=== PATIENT | male | born 1995 | race Two or more races ===

== ENCOUNTER 2018-10-14 02:07 | Emergency (ER) | payer SELFPAY ==
[2018-10-14 04:03] LABS: ABS Basophils 0.1 10^3/ul (0-0.2); ABS Eosinophils 0.1 10^3/ul (0-0.6); ABS Lymphocytes 2.7 10^3/ul (1.0-4.8); ABS Monocytes 0.7 10^3/ul (0-0.8); ABS Neutrophils 4.5 10^3/ul (1.5-7.7); ABS Nucleated RBC 0 10^3/ul; Eosinophil % 1.7 %; Hematocrit 50 % (42-52); Hemoglobin 17.1 g/dl (14.0-18.0); Lymphocyte % 33.6 %; Mean Corpuscular HGB Conc 34 g/dl (31-36); Mean Corpuscular Hemoglobin 30 pg (27-31); Mean Corpuscular Volume 88 fL (80-94); Mean Platelet Volume 9.3 fL (7.4-10.4); Nucleated Red Blood Cells % 0; Platelet Count 206 10^3/ul (150-450); Red Blood Count 5.68 10^6/ul (4.00-5.40); Red Cell Distribution Width 13 % (10.5-15); White Blood Count 8.1 10^3/ul (3.5-10.8)
[2018-10-14 04:21] LABS: Albumin 4.6 g/dL (3.2-5.2); Albumin/Globulin Ratio 1.6 (1-3); BUN/Creatinine Ratio 21.3 (8-20); Calcium 9.7 mg/dL (8.6-10.3); EGFR African American 128.2 (>60); EGFR Non-African American 105.9 (>60); Globulin 2.8 g/dL (2-4); Potassium 3.5 mmol/L (3.5-5.0); Total Bilirubin 0.6 mg/dL (0.2-1.0); Total Protein 7.4 g/dL (6.4-8.9)
[2018-10-14] MEDS ORDERED: LORazepam TAB(*) 1 MG PO ONE (04:39)
--- NOTE | 2018-10-14 06:07 | ED ---
Shortness of Breath - HPI Summary HPI Summary: The patient is a 23 y/o M presenting to [facility] with a chief complaint of sudden onset SOB tonight. He states he was trying to go to sleep after feeling fatigued and stressed out from school, when he felt like he couldn't breathe well. He went outside to try to get some air, but there was no relief so he came to the ED. He felt alright this morning, but he had a similar experience a few nights ago. He additionally c/o mild dizziness. He denies wheezing, CP, and pain or swelling in the legs. He is not currently in pain as his symptoms have resolved. No hx. - History of Current Complaint Chief Complaint: EDUpperRespComplaint Time Seen by Provider: 10/14/18 03:16 Hx Obtained From: Patient Onset/Duration: Sudden Onset, Lasting Minutes, Resolved Current Severity: Mild Aggrevating Factors: Nothing Alleviating Factors: Nothing Associated Signs & Symptoms: Dizzy - Allergy/Home Medications Allergies/Adverse Reactions: Allergies Allergy/AdvReac Type Severity Reaction Status Date / Time No Known Allergies Allergy Verified 10/14/18 02:10 PMH/Surg Hx/FS Hx/Imm Hx Endocrine/Hematology History: Denies: Hx Diabetes Respiratory History: Denies: Hx Asthma Sensory History: Reports: Hx Contacts or Glasses - Surgical History Surgery Procedure, Year, and Place: none Infectious Disease History: No Infectious Disease History: Reports: Traveled Outside the in Last 30 Days - [place] - Family History Known Family History: Positive: Unknown - patient is unsure - Social History Occupation: Student Alcohol Use: None Substance Use Type: Reports: None Smoking Status (MU): Never Smoked Tobacco Review of Systems Positive: Fatigue Negative: Chest Pain Positive: Shortness Of Breath, Other - NEGATIVE: wheezing Positive: Other - NEGATIVE: pain in legs. Negative: Edema Neurological: Other - mild dizziness Positive: Other - stressed out All Other Systems Reviewed And Are Negative: Yes Physical Exam - Summary Physical Exam Summary: Appearance: Well-appearing, Well-nourished, lying in bed comfortably Skin: Warm, dry, no obvious rash Eyes: sclera anicteric, no conjunctival pallor ENT: mucous membranes moist, pharynx appears normal Neck: Supple, nontender Respiratory: Clear to auscultation, no signs of respiratory distress Cardiovascular: Normal S1, S2. No murmurs. Normal distal pulses in tibial and radial bilaterally. Abdomen: Soft, nontender, normal active bowel sounds present Musculoskeletal: Normal, Strength/ROM Intact Neurological: A&Ox3, awake and alert, mentation is normal, speech is fluent and appropriate Psychiatric: affect is normal, does not appear anxious or depressed Triage Information Reviewed: Yes Vital Signs On Initial Exam: Initial Vitals Temp Pulse Resp BP Pulse Ox 98.5 F 65 16 129/92 100 10/14/18 02:10 10/14/18 02:10 10/14/18 02:10 10/14/18 02:10 10/14/18 02:10 Vital Signs Reviewed: Yes Diagnostics - Vital Signs Vital Signs Temp Pulse Resp BP Pulse Ox 10/14/18 05:17 53 111/72 97 10/14/18 05:00 54 96 10/14/18 04:56 17 10/14/18 04:47 56 105/78 98 10/14/18 04:17 56 115/74 97 10/14/18 04:00 56 100 10/14/18 03:47 137/91 10/14/18 03:18 67 99 10/14/18 03:17 64 134/94 99 10/14/18 02:10 98.5 F 65 16 129/92 100 - Laboratory Lab Results: Lab Results 10/14/18 10/14/18 10/14/18 Range/Units 03:57 03:57 03:57 WBC 8.1 (3.5-10.8) 10^3/ul RBC 5.68 H (4.00-5.40) 10^6/ul Hgb 17.1 (14.0-18.0) g/dl Hct 50 (42-52) % MCV 88 (80-94) fL MCH 30 (27-31) pg MCHC 34 (31-36) g/dl RDW 13 (10.5-15) % Plt Count 206 (150-450) 10^3/ul MPV 9.3 (7.4-10.4) fL Neut % (Auto) 55.7 % Lymph % (Auto) 33.6 % [place] % (Auto) 8.1 % Eos % (Auto) 1.7 % Baso % (Auto) 0.9 % Absolute Neuts (auto) 4.5 (1.5-7.7) 10^3/ul Absolute Lymphs (auto) 2.7 (1.0-4.8) 10^3/ul Absolute Monos (auto) 0.7 (0-0.8) 10^3/ul Absolute Eos (auto) 0.1 (0-0.6) 10^3/ul Absolute Basos (auto) 0.1 (0-0.2) 10^3/ul Absolute Nucleated RBC 0 10^3/ul Nucleated RBC % 0 D-Dimer, Quantitative < 200 (Less Than 230) ng/mL Sodium 138 (135-145) mmol/L Potassium 3.5 (3.5-5.0) mmol/L Chloride 104 (101-111) mmol/L Carbon Dioxide 27 (22-32) mmol/L Anion Gap 7 (2-11) mmol/L BUN 19 (6-24) mg/dL Creatinine 0.89 (0.67-1.17) mg/dL Est GFR ( Amer) 128.2 (>60) Est GFR (Non-Af Amer) 105.9 (>60) BUN/Creatinine Ratio 21.3 H (8-20) Glucose 88 (70-100) mg/dL Lactic Acid (0.5-2.0) mmol/L Calcium 9.7 (8.6-10.3) mg/dL Total Bilirubin 0.60 (0.2-1.0) mg/dL AST 15 (13-39) U/L ALT 16 (7-52) U/L Alkaline Phosphatase 41 (34-104) U/L Troponin I 0.00 (<0.04) ng/mL Total Protein 7.4 (6.4-8.9) g/dL Albumin 4.6 (3.2-5.2) g/dL Globulin 2.8 (2-4) g/dL Albumin/Globulin Ratio 1.6 (1-3) 10/14/18 Range/Units 03:57 WBC (3.5-10.8) 10^3/ul RBC (4.00-5.40) 10^6/ul Hgb (14.0-18.0) g/dl Hct (42-52) % MCV (80-94) fL MCH (27-31) pg MCHC (31-36) g/dl RDW (10.5-15) % Plt Count (150-450) 10^3/ul MPV (7.4-10.4) fL Neut % (Auto) % Lymph % (Auto) % [place] % (Auto) % Eos % (Auto) % Baso % (Auto) % Absolute Neuts (auto) (1.5-7.7) 10^3/ul Absolute Lymphs (auto) (1.0-4.8) 10^3/ul Absolute Monos (auto) (0-0.8) 10^3/ul Absolute Eos (auto) (0-0.6) 10^3/ul Absolute Basos (auto) (0-0.2) 10^3/ul Absolute Nucleated RBC 10^3/ul Nucleated RBC % D-Dimer, Quantitative (Less Than 230) ng/mL Sodium (135-145) mmol/L Potassium (3.5-5.0) mmol/L Chloride (101-111) mmol/L Carbon Dioxide (22-32) mmol/L Anion Gap (2-11) mmol/L BUN (6-24) mg/dL Creatinine (0.67-1.17) mg/dL Est GFR ( Amer) (>60) Est GFR (Non-Af Amer) (>60) BUN/Creatinine Ratio (8-20) Glucose (70-100) mg/dL Lactic Acid 1.2 (0.5-2.0) mmol/L Calcium (8.6-10.3) mg/dL Total Bilirubin (0.2-1.0) mg/dL AST (13-39) U/L ALT (7-52) U/L Alkaline Phosphatase (34-104) U/L Troponin I (<0.04) ng/mL Total Protein (6.4-8.9) g/dL Albumin (3.2-5.2) g/dL Globulin (2-4) g/dL Albumin/Globulin Ratio (1-3) Result Diagrams: 10/14/18 03:57 10/14/18 03:57 Lab Statement: Any lab studies that have been ordered have been reviewed, and results considered in the medical decision making process. - Radiology CXR Radiology Interpretation Completed By: Radiologist Summary of Radiographic Findings: No acute process. ED physician has reviewed this report. - EKG 0357 Cardiac Rate: NL - 57 BPM EKG Rhythm: Sinus Rhythm Summary of EKG Findings: NSR at 57BPM, P waves, QRS complex, and T waves are within normal limits, T waves and intervals are normal, no ischemic changes. This is a normal EKG. Re-Evaluation - Re-Evaluation First Eval Re-Evaluation Time: 05:00 Change: Improved Comment: He feels better in the ED. We discussed discharge home. Course/Dx - Course Course Of Treatment: The patient is a 23 y/o M with a chief complaint of sudden onset SOB tonight. He states he was trying to go to sleep after feeling fatigued and stressed out from school, when he felt like he couldn't breathe well. He went outside to try to get some air to no relief. He felt alright this morning, but he had a similar experience a few nights ago. He additionally c/o mild dizziness. He denies wheezing, CP, and pain or swelling in the legs. No hx. Upon physical examination, there are no acute abnormalities. In the ED course, the patient was administered Ativan. Bloodwork is normal. EKG is normal. CXR reveals no acute process. He is diagnosed with panic attack. He is discharged with a prescription for Ativan, and he will follow up with PCP. He agrees with this plan and understands the need for return to the ED if necessary. - Diagnoses Differential Diagnosis/HQI/PQRI: Positive: Airway Obstruction, Chest Wall Pain, Pneumonia, Pneumothorax, Pulmonary Embolism Provider Diagnoses: Panic attack Discharge - Sign-Out/Discharge Documenting (check all that apply): Patient Departure - Patient will be discharged home. Patient Received Moderate/Deep Sedation with Procedure: No - Discharge Plan Condition: Good Disposition: HOME Prescriptions: LORazepam TAB(*) [Ativan 0.5 MG TAB (*)] 0.5 mg PO Q8H PRN #10 tab MDD 4 tabs PRN Reason: Anxiety Patient Education Materials: Panic Disorder (ED) Referrals: Laura Fragoso HEAD TELLER [Primary Care Provider] - 1 Week (if still having problems) - Billing Disposition and Condition Condition: GOOD Disposition: Home - Attestation Statements Document Initiated by Scribe: Yes Documenting Scribe: Miriam Bond Provider For Whom Andre is Documenting (Include Credential): Dr. Ant Gabriel MD Scribe Attestation: IMiriam scribed for Dr. Ant Gabriel MD on 10/15/18 at 0431. Scribe Documentation Reviewed: Yes Provider Attestation: The documentation as recorded by the Miriam boyer accurately reflects the service I personally performed and the decisions made by me, Dr. Ant Gabriel MD Status of Scrfariba Document: Viewed
[2018-10-14 07:20] VITALS: BP 107/71
== END 2018-10-14 07:27 | disposition home or self-care (01) ==
LOC: ED 02:07
DX: F41.0 Panic disorder [episodic paroxysmal anxiety] (principal); R06.02 Shortness of breath; R42 Dizziness and giddiness
CPT/HCPCS: 36415; 71046; 80053; 83605; 84484; 85025; 85379; 87040; 93005; 99283; A9270-GY